=== PATIENT | female | born 1980 | race Caucasian/White ===

== ENCOUNTER 2019-01-17 20:09 | Emergency (ER) | payer OTHER ==
[2019-01-17 20:24] VITALS: BP 108/79; PULSE 102; TEMP 97.9; BMI 23.3
[2019-01-17] MEDS ORDERED: ALPRAZolam 1 MG TABLET PO PRN (20:30)
[2019-01-17] MEDS ORDERED: ALPRAZolam 0.25 MG TABLET ONE (20:51)
--- NOTE | 2019-01-17 21:02 | PDOC ---
Documentation entered by Layla Hernandes SCRIBE, acting as scribe for Angela Orellana MD. Angela Orellana MD: This documentation has been prepared by the suniibe, Layla Hernandes SCRIBE, under my direction and personally reviewed by me in its entirety. I confirm that the documentation accurately reflects all work , treatment, procedures, and medical decision making performed by me. History of Present Illness - General Chief Complaint: Psychiatric Stated Complaint: PANICKY FEELING PRESSURE IN HER THROAT Time Seen by Provider: 01/17/19 20:13 History Source: Patient Exam Limitations: No Limitations - History of Present Illness Initial Comments: 01/17/19 20:41 The patient is a 38-year-old female, with a past medical history of anxiety and bipolar disorder, who presents to the ED with 3 days neck tightness that radiates down to her chest. The patient is anxious-appearing. She states that it feels like her tongue is swollen and she is having difficulty swallowing. The patient denies any fevers, chills, nausea, vomiting, diarrhea, or abdominal pain. Denies any chest pain or shortness of breath. Denies any weakness, dizziness, lightheadedness, or changes in strength or sensation. PAST MEDICAL HISTORY: Anxiety, bipolar disorder. PAST SURGICAL HISTORY: no significant history FAMILY HISTORY: no pertinent history HISTORY: Pt lives with family and is employed. MEDICATIONS: reviewed ALLERGIES: As per nursing notes General: No fevers or chills, no weakness, no weight loss HEENT: (+)Neck muscle tightness, difficulty swallowing. No change in vision. No sore throat. No ear pain CardioVascular: (+)Chest tightness. No chest pain or shortness of breath Respiratory:No cough, or wheezing. Gastrointestinal: no nausea, vomiting, diarrhea or constipation, No rectal bleeding Genitourinary: No dysuria, hematuria, or frequency Musculoskeletal: No joint pain or swelling Neurologic: No headache, vertigo, dizziness or loss of consciousness Psychiatric: nor depression Skin: No rashes or easy bruising Endocrine: no increased thirst or abnormal weight change Allergic: no skin or latex allergy All other systems reviewed and normal GENERAL:(+)Tearful, panicked-feeling, anxious. The patient is awake, alert, and fully oriented. HEAD: Normal with no signs of trauma. HEENT: (+)Neck muscle tightness, mild erythema or posterior oropharynx. No lymphadenopathy. Tonsils are normal, no exudates. No angioedema. EYES: Pupils equal, round and reactive to light, extraocular movements intact, sclera anicteric, conjunctiva clear. EXTREMITIES: Normal range of motion, no edema. NEUROLOGICAL: Normal speech, normal gait. PSYCH: (+)Anxious-appearing. SKIN: Warm, Dry, normal turgor, no rashes or lesions noted. Past History - Past Medical History Allergies/Adverse Reactions: Allergies Allergy/AdvReac Type Severity Reaction Status Date / Time No Known Allergies Allergy Verified 01/17/19 20:11 Home Medications: Ambulatory Orders Lamotrigine [Lamotrigine ER] 200 mg PO DAILY 01/17/19 Venlafaxine HCl ER [Effexor Xr -] 150 mg PO DAILY 01/17/19 COPD: No Psychiatric Problems: Yes (ANXIETY BIPOLAR) - Suicide/Smoking/Psychosocial Hx Smoking History: Never smoked Information on smoking cessation initiated: No Hx Alcohol Use: No Drug/Substance Use Hx: No Review of Systems - Review of Systems Able to Perform ROS?: Yes *Physical Exam - Vital Signs Last Vital Signs Temp Pulse Resp BP Pulse Ox 97.9 F 102 H 18 108/79 97 01/17/19 20:10 01/17/19 20:10 01/17/19 20:10 01/17/19 20:10 01/17/19 20:10 *DC/Admit/Observation/Transfer Diagnosis at time of Disposition: Anxiety - Discharge Dispostion Disposition: HOME Condition at time of disposition: Stable Decision to Admit order: No - Referrals - Patient Instructions Additional Instructions: Return to the emergency department immediately with ANY new, persistent or worsening symptoms. Continue any medications as previously prescribed by your physician. You should follow up with your primary doctor as soon as possible regarding today's emergency department visit. . Please make sure your doctor reviews the results of your emergency evaluation. Thank you for coming to the Emergency Department today for your care. It was a pleasure to see you today. Please note that your evaluation is INCOMPLETE until you follow-up with your doctor. - Post Discharge Activity
--- NOTE | 2019-01-18 10:11 | EKG ---
Test Reason : Blood Pressure : / mmHG Vent. Rate : 089 BPM Atrial Rate : 089 BPM P-R Int : 144 ms QRS Dur : 076 ms QT Int : 362 ms P-R-T Axes : 075 079 069 degrees QTc Int : 440 ms POOR DATA QUALITY, INTERPRETATION MAY BE ADVERSELY AFFECTED NORMAL SINUS RHYTHM NORMAL ECG NO PREVIOUS ECGS AVAILABLE Confirmed by ISAIAH HAJI MD ([id number]) on 01/18/2019 10:11:15 AM Referred By: Confirmed By:ISAIAH HAJI MD
== END 2019-01-17 21:36 | disposition home or self-care (01) ==
LOC: FER 20:09
DX: F41.9 Anxiety disorder, unspecified (principal); F31.9 Bipolar disorder, unspecified
CPT/HCPCS: 93005; 99281-25